=== PATIENT | female | born 1960 ===

== ENCOUNTER 2017-01-28 07:53 | Day surgery (SDC) | payer OTHER ==
[2016-11-25 07:56] VITALS: BMI 25.7
[2017-01-28 08:48] VITALS: O2SAT 100
[2017-01-28] MEDS ORDERED: Propofol 10 mg/ml Inj (20 ML) ONE (08:50)
[2017-01-28] MEDS ORDERED: Midazolam 2 MG/2 ML VIAL ONE (08:50)
[2017-01-28] MEDS ORDERED: Lactated Ringer's 500 ML IV ONE ×2 (09:15)
[2017-01-28 11:23] VITALS: TEMP 97.8
[2017-01-28 14:47] VITALS: BP 147/74; PULSE 71; RESP 20
== END 2017-01-28 11:50 | disposition home or self-care (01) ==
LOC: C.ENDO 07:53
PROVIDERS: ATTEND Internal Medicine Gastroenterology
DX: K29.50 Unspecified chronic gastritis without bleeding (principal); K25.7 Chronic gastric ulcer without hemorrhage or perforation; D12.0 Benign neoplasm of cecum; D12.4 Benign neoplasm of descending colon; K64.1 Second degree hemorrhoids
CPT/HCPCS: 43239; 45380; 82948; 88305; 88342; J2250; J2704; J7120